=== PATIENT | male | born 1980 | race American Indian/Alaskan Native ===

== ENCOUNTER 2017-05-11 22:50 | Emergency (ER) | payer MEDICAID ==
[~2017-05-11] VITALS: Ht 175.3 cm; Wt 78.6 kg
[2017-05-12] MEDS ORDERED: ibuprofen 200mg tablet PO ONE (03:00)
[2017-05-12 03:22] VITALS: BP 149/95
== END 2017-05-12 04:29 | disposition home or self-care (01) ==
LOC: ER 22:51
DX: S82.451B Displaced comminuted fracture of shaft of right fibula, initial encounter for open fracture type I or II (principal); W34.00XA Accidental discharge from unspecified firearms or gun, initial encounter; Y93.89 Activity, other specified; Y92.89 Other specified places as the place of occurrence of the external cause; Y99.9 Unspecified external cause status
CPT/HCPCS: 73590; 99284

== ENCOUNTER 2017-05-14 05:56 | Emergency (ER) | payer MEDICAID ==
[~2017-05-14] VITALS: Ht 172.7 cm; Wt 77.1 kg
[2017-05-14] MEDS ORDERED: CEPH-572 PO (07:20)
[2017-05-14] MEDS ORDERED: SULF1TAB49 PO (07:20)
[2017-05-14 07:56] VITALS: BP 148/51
== END 2017-05-14 08:00 | disposition home or self-care (01) ==
LOC: ER 05:57
DX: Z48.00 Encounter for change or removal of nonsurgical wound dressing (principal); S81.801D Unspecified open wound, right lower leg, subsequent encounter; Z59.0 Homelessness; Z56.0 Unemployment, unspecified; Z79.899 Other long term (current) drug therapy; W33.01XD Accidental discharge of shotgun, subsequent encounter
CPT/HCPCS: 99283